=== PATIENT | male | born 1980 | race Caucasian/White ===

== ENCOUNTER → 2019-11-09 | Outpatient (CLI) | payer OTHER, SELFPAY ==
[2019-11-09 10:08] VITALS: BMI 29.2
--- NOTE | 2019-11-09 10:14 | RAD_ITS ---
STUDY: X-RAY - LEFT WRIST REASON FOR EXAM: Ganglion cyst. TECHNIQUE: 3 view(s) of the wrist were obtained. COMPARISON: None. FINDINGS: Normal visualized distal radius and ulna. Normal radiocarpal articulation. Normal distal radioulnar articulation. Normal carpal bones. Normal carpal articulations. Normal carpometacarpal articulation of the thumb. Normal second through fifth carpometacarpal articulations. Normal visualized metacarpal bones. The soft tissue structures are unremarkable. RAD/Wrist min 3 Views IMPRESSION: Normal x-ray examination of the left wrist. Electronically Signed: Cristian Black MD at 14:23 EST Tel , Service support ,
== END | disposition home or self-care (01) ==
LOC: HPRAD 10:14
PROVIDERS: Referring Provider Orthopaedic Surgery; Visit Provider Orthopaedic Surgery
DX: M67.432 Ganglion, left wrist (principal)
CPT/HCPCS: 73110

== ENCOUNTER 2019-11-17 09:45 | Day surgery (SDC) | payer OTHER, SELFPAY ==
[2019-11-10 11:08] VITALS: BMI 30.7
[2019-11-17] MEDS: Lactated Ringers 1,000 ML 100 ML IV (10:44)
[2019-11-17 10:49] VITALS: BP 138/86; PULSE 78; RESP 16; TEMP 36.4; O2SAT 100; BMI 31.8
--- NOTE | 2019-11-17 12:00 | GANG_PTH ---
PATIENT: YAKOV DOWD [place] [facility] [id number] AGE/SX: 39/M ROOM: RE11/17/[address]: Dr. Isabel Sofia DO : 1980 BED: DIS: 11/17/2019 SPEC #: [id number] RECD: 11/17/19 16:27 STATUS: JOSE VALDIVIA #: [id number] ROSA: 11/17/19 12:[address]: Isabel Sofia DEPT: SURGICAL PATHOLOGY RECD BY: Bret Rosa ENTERED: 11/18/19 07:53 SP TYPE: GANGLION OTHR DR: Lakisha Primary Care Phys Tissues: GANGLION CYST Procedures: Surgery Specimen Level III HEADER OPERATION: Excision dorsal wrist ganglion PRE-OP DIAGNOSIS: Ganglion cyst of dorsum of left wrist TISSUE SUBMITTED: Left wrist ganglion cyst MICROSCOPIC DIAGNOSIS Left wrist ganglion cyst, excision: Consistent with ganglion cyst. SJ:everett 11/19/19 MICROSCOPIC DESCRIPTION Slides are reviewed. GROSS DESCRIPTION Received in fixative is one container labeled with the patient's name and designated left wrist ganglion cyst. The specimen consists of an ovoid fragment of pink-white soft tissue measuring 2.5 x 2 x 1.7 cm. Serial sections reveal gelatinous cut surface. Instructor Adjunct Pharmacy Technician sections are submitted in two cassettes. / AM:everett 11/18/19 TC:5 CPT: 34597
[2019-11-17] MEDS: Cefazolin 2 GM in 0.9% Normal Saline 100 ML IV (12:46)
[2019-11-17] MEDS: Mupirocin Ointment 22gm Tube 1 APPLIC (13:19)
--- NOTE | 2019-11-17 14:57 | DCINST_ITS ---
Discharge Diet: No Restrictions - leave dressing cdi, follow up in 2 weeks, call with concerns Discharge Activity: May Not Drive May shower in (days): 1 Ice area for (Minutes): 20 - Every hour while awake. Weight Bearing Status: Weight bearing as tolerated Keep extremity elevated above heart level: Operative Extremity Call your doctor if your incision/area has: Continuous Slow Oozing, Sudden Increased Bleeding, Increased Pain/ Swelling, Increased Redness, Foul Smelling Discharge Call your doctor if you observe: Fever of 101 or Higher, Coldness, Increased Pain, Numbness or Tingling, Change in Color, Calf discomfort Allergies/Adverse Reactions: Allergies Penicillins Allergy (Unknown, Verified 11/12/19 09:00) unknown Medications to take at Discharge Hydrocodone Bitart/Apap 5-325 [[place] 5MG-325MG] 1 - 2 tab PO Q6H PRN PRN 5 Days #40 tab 11/17/19 The following prescriptions were given: Hydrocodone Bitart/Apap 5-325 [[place] 5MG-325MG] 1 - 2 tab PO Q6H PRN PRN 5 Days #40 tab PRN Reason: Pain Transmission Status: Received by [facility] Primary Care Physician: Care Physician,No Primary [Primary Care Provider] - Test Results: Test results from this visit will be discussed in further detail at your follow- up appointment, if applicable. Please Follow Up With: Isabel Sofia, DO - [phone]
--- NOTE | 2019-11-17 14:58 | OP.PCM_ITS ---
Report of Operation Date of Procedure: 11/17/19 Pre-Operative Diagnosis: left dorsum hand/wrist painful ganglion cyst Post-Operative Diagnosis: same Surgery/Procedure Performed:: left dorsal ganglion cyst excision financial aid director: Jose Martin Maldonado Type of Anesthesia:: General Anesthesiologist: see chart Estimated Blood Loss (mL): minimal Fluids Replaced: see chart Description of Procedure: Preop note Patient is a 39-year-old male with continued dorsum hand pain secondary to a ganglion cyst that appears to get bigger and smaller. States is affecting his activities of daily living has failed conservative treatment options elected proceed with excision of ganglion cyst repair as indicated. Risk benefits and alternatives were discussed with family. Risk including but not limited to blood loss, blood clot, infection, neurovascular, failure procedure, loss of life and loss of limb. Patient is aware would like proceed with ganglion cyst excision of the left hand. Operative note Patient seen and examined preoperative holding area. Left hand was marked. Patient was brought to the operating room placed supine on the operating table. Sign, anesthesia, antibiotics were administered. The left hand was prepped and draped in usual sterile fashion and tourniquet was placed on his upper extremity. All bony prominences well-padded SCDs placed on her bilateral his bilateral lower extremity. Timeout was performed. We then marked out our incision over top of the galea incision we did extend across the wrist creases it was a quite large palpable cyst it across the crease as well. Extended and been outstretched standard technique at 45 degree angles proximally distally crossing the wrist crease dorsally. The arm was then elevate exsanguinated turn was raised her pressure of 250 torr. We then began with a 15 blade cut through skin dissected down with tenotomies the level of the ganglion cyst. We care fully dissected the ganglion cyst its entirety measured to be about 3 x 4 x 1 cm and ganglion cyst and was able to be excised in its entirety and sent to pathology for further evaluation. Please note that during the entire case we did protect all neurovascular structures as well as tendons as it was very close to his EPL extensor tendons. We able to find a stop we did ablate the stalk as well. The tourniquet was deflated and all bleeders were coagulated. We closed the incision with a couple of 3-0 Vicryl and 4-0 nylon. Sterile dressings and a splint was applied to the left hand and wrist. Patient taught procedure well no complication transfer recovery room in stable condition Postoperative Nonweightbearing left upper extremity Follow-up in 2 weeks for stitch removal and initiation of physical therapy Call with increased pain numbness tingling further issues arise Dragon disclaimer This note was generated with [employer] dictation software. It may contain incorrect words, spelling, and punctuation that were not noted in checking the note before signing.
[2019-11-17] MEDS: Bupiv/Epi 0.25% 30 ML Vial (15:00)
--- NOTE | 2019-11-17 15:00 | HP.PCM_ITS ---
History and Physical I have re-examined the patient. There are no clinical changes since date of exam. Intake Vital Signs 11/09/19 Height 5 ft 11 in 11/09/19 Weight: 220 lb 11/09/19 BMI 30.7 Intake Visit Reasons: Ganglion Cyst LEFT WRIST Accompanied by: spouse Is patient in pain?: No Allergies Penicillins Allergy (Unknown, Verified 11/09/19 10:16) unknown Medications NK 11/09/19 [History Confirmed 11/09/19] [facility] Social History (Updated 11/09/19 @ 10:[address] Isabel Sofia DO) Smoking Status: Never smoker HPI Ganglion Cyst LEFT WRIST: Details: Parts of this documentation were recorded by a scribe, this documentation accurately reflects the service provided and the decisions made by me, Dr. Isabel Sofia DO 11/09/19 1005. YAKOV DOWD is a 39 year old M NEW patient here today for ganglion cyst of dorsum of left wrist. States that he has had this for many years. He has had the cyst aspirated and injection with steroid about 2-3 times. Last aspiration and injection was around 2006 and then the cyst has returned. He has had one of his right wrist which had surgically removed and this one has not returned. He wishes to discuss surgical removal of this cyst. Denies numbness, tingling or other associated symptoms. Ibarra shave pain over the cyst with certain movements or if he bumps the area. Denies any x-rays. ROS Musc Denies joint pain, Denies limited joint movement, Denies numbness, Denies stiffness, Denies tingling Skin/Breast Denies redness, Denies lesions, Denies rash, Reports skin pain, Denies skin swelling, Denies wounds Details: cyst of dorsum of left wrist Neuro No numbness, No tingling No rales rhonchi wheezing, no abdominal pain, no audible bruits Ortho Exam Left Wrist/Hand Contralateral Normal: Yes WRIST: visible palpable cyst Assessment & Plan Problems 1. Cyst 2. Ganglion cyst of dorsum of left wrist M67.432 Plan Personally reviewed the patient's medical history, medications, surgeries and recent exams if available. X-rays were reviewed. There is no obvious fracture, dislocation, or lucency noted. Educated on the anatomy of the hand and explained that after trying aspirations it would be recommended to have the cyst removed, reviewed the risk of the cyst recurring. Reviewed post op splint and restrictions. Reviewed the pre-operative plans with the patient. Risks and benefits of the procedure were fully explained, including but not limited to infection, neurovascular injury, continued pain, arthritis, stiffness, need for further surgery, re-injury, DVT, PE, general risks of anesthesia, and loss of limb or life. The patient understands all the risks and does wish to proceed with written consent. Follow up post op or sooner if pain, swelling, numbness or associated symptoms, or concerns develop. All questions answered. Patient in agreement of plan. Orders Orders: Wrist min 3 Views Today M67.439 Coding Level of Care Code Off vis,new,level 3 Diagnoses Cyst Ganglion cyst of dorsum of left wrist M67.432
[2019-11-17 15:16] VITALS: BP 123/72; BP 138/86; PULSE 69; RESP 16; TEMP 35.9; O2SAT 94
[2019-11-17 15:30] VITALS: BP 121/86; BP 138/86; PULSE 66; RESP 16; O2SAT 95
[2019-11-17 15:45] VITALS: BP 138/86; PULSE 67; RESP 16; O2SAT 96
[2019-11-17 16:00] VITALS: BP 129/72; BP 138/86; PULSE 71; RESP 16; TEMP 36.1; O2SAT 94
[2019-11-17] MEDS: HYDROcodone Bitartrate/Apap 5/325 Tablet PO (16:25)
[2019-11-17 17:21] VITALS: BP 134/83; BP 138/86; PULSE 72; RESP 18; TEMP 36.6; O2SAT 98
== END 2019-11-17 17:22 | disposition home or self-care (01) ==
LOC: SDC 09:46 → AC 09:48
PROVIDERS: Referring Provider Orthopaedic Surgery; Visit Provider Orthopaedic Surgery
PROC: (CPT 25111; principal; 2019-11-17 11:45)
DX: M67.432 Ganglion, left wrist (principal)
CPT/HCPCS: 01810; 25111; 88304; J7120; J2405

== ENCOUNTER 2019-12-29 13:11 | Outpatient (RCR) | payer OTHER, SELFPAY ==
[2019-12-28 09:36] VITALS: BMI 31.8
--- NOTE | 2019-12-29 14:59 | HP.OTEVAL ---
Patient's Visit Information YAKOV DOWD is a 39 year old M, referred to Occupational Therapy by Dr. Isabel Sofia DO, with a diagnosis of left cyst excision. Date of Evaluation: 12/29/19 Occupational Therapist: Kenzie Segovia, TARYN/Anabell, CHT - Subjective Subjective: This 39 year old male was seen for OT eval with dx of a cyst- pt states he had it for about two years. Pt currntly 6 weeks s/p. of large cyst excison (11-17-19) pt has concerns with pain and limited ROM. Pt states wt.bearing on left hand increases pain. This limits him from ADLs and IADLS. Pt would like to return to PLOF - Pain left wrist Pain Intensity Range: 8 - ROM Forearm: right/ left WNL Wrist: Right 67/70 left 50/55 ROM Comments: pt demo with limited wrist ROM - Strength [employer] Operator: right 120# left 100# Lateral Pinch: right 14# left 14# Tripod Pinch: right 16# left 14# - Sensation Sensation Comments: denies - Quick DASH-Disab of Arm,Shoulder& Hand Quick DASH Score: 40.0000 - Goals Goal:: pt will demo a left anatomic pathology manager strength of 115# or greater to increase pts ind. with ADLs and IADLS by d/c Goal:: Pt will demo full left wrist flex/ext 70/70 to return to performing his ADLs and ex routine by d/c Goal:: pt will report no pain greater than 1/10 with wt. bearing to left UE by d/c Goal:: pt will demo understanding of scar mtg by end of 2nd session to decrease risk of scar adhesions by d/c - Rehabilitation General Assessment: pt currently 6 weekss/p ganglion cyst removal and demo limited ROM, pain and weakness. Pt would benefit from skilled OT services 1-2 x week for 4 weeks to return pt to PLOF. Today therapist used paraffin and prolonged stretch of wrist ext to gain ROM- therapist also ed. pt on scar mtg and was given scar gel to wear at night to decrease scar sensitivity. Therapist also ed. pt on cont with ice 2x a day to assist with swelling he gets at the end of the day. pt was given ex, he demo understanding of ex and agree to POC Rehabilitation Potential: Good - Anticipated Interventions Anticipated Interventions: A/ARETHA/PROM, Strengthening, Scar Care, Modalities - Visit Plan Frequency: 1-2x /Week Duration: 4 Weeks TEXT: Thank you for the opportunity to evaluate your patient. For Medicare and Medicare HMO plans, please review the plan of care and approve it. It will need to be FAXED BACK to us at [phone] for Medicare purposes. Please let me know if there are questions or concerns regarding this plan of care. Physician Signature: Date:
--- NOTE | 2020-05-31 14:21 | HP.OT.NRP ---
YAKOV DOWD was seen in my office for initial evaluation on 12/29/19. The following Plan of Care was established for this patient: Initial Frequency: 1-2x /Week Initial Duration: 4 Weeks Anticipated Interventions: A/AAROM/PROM, Strengthening, Scar Care, Modalities This patient was last seen in our office 12/29/19. Pertinent comments regarding their Occupational therapy will appear below: Pt was seen for OT eval only- no further apts scheduled at this time. Pt is d/c from therapy services. At this point I will be discontinuing this patient from occupational therapy. I would be happy to see this patient again in the future if found appropriate by the physician. Thank you! Kenzie Segovia, OTR/L, CHT
== END 2019-12-29 19:00 | disposition home or self-care (01) ==
LOC: OT 13:11
PROVIDERS: Referring Provider Orthopaedic Surgery; Visit Provider Orthopaedic Surgery
DX: Z98.890 Other specified postprocedural states (principal)
CPT/HCPCS: 97110; 97166

== ENCOUNTER 2021-07-15 16:24 | Emergency (ER) | payer BC, SELFPAY ==
[2021-07-15 16:25] VITALS: BP 154/104; PULSE 84; RESP 18; TEMP 36.4; O2SAT 98; BMI 32.1
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
--- NOTE | 2021-07-15 16:54 | RAD_ITS ---
STUDY: X-RAY - RIGHT HAND REASON FOR EXAM: Male, 41 years old. Injury/Pain TECHNIQUE: 3 view(s) of the hand. COMPARISON: None. FINDINGS: Please see the impression. RAD/Hand Min 3 Views IMPRESSION: No acute fracture or dislocation in the right hand. No radiopaque foreign body. Electronically Signed: Vince Allen MD at 17:27 EDT Tel , Service support ,
== END 2021-07-15 17:56 | disposition home or self-care (01) ==
PROVIDERS: Emergency Provider Emergency Medicine
DX: S63.610A Unspecified sprain of right index finger, initial encounter (principal); X58.XXXA Exposure to other specified factors, initial encounter; Y93.89 Activity, other specified; Y92.009 Unspecified place in unspecified non-institutional (private) residence as the place of occurrence of the external cause; Y99.8 Other external cause status
CPT/HCPCS: 73130; 99283